=== PATIENT | male | born 1980 | race Caucasian/White ===

== ENCOUNTER 2017-09-19 19:24 | Emergency (ER) | payer MEDICAID ==
[~2017-09-19] VITALS: Ht 170.2 cm; Wt 68.7 kg
[2017-09-19] MEDS ORDERED: TETANUS, DIPHTHERIA, PERTUSSIS VAC/PF 0.5ML (>7YR OLD) IM ONE (23:00)
[2017-09-20] MEDS ORDERED: IBUPROFEN 600MG TABLET PO ONE (01:00)
[2017-09-20 01:11] VITALS: BP 122/86
== END 2017-09-20 01:12 | disposition home or self-care (01) ==
LOC: ER 20:27
DX: S80.02XA Contusion of left knee, initial encounter (principal); F12.10 Cannabis abuse, uncomplicated; F17.200 Nicotine dependence, unspecified, uncomplicated; V29.88XA Motorcycle rider (driver) (passenger) injured in other specified transport accidents, initial encounter; Y93.89 Activity, other specified; Y92.89 Other specified places as the place of occurrence of the external cause; Y99.8 Other external cause status
CPT/HCPCS: 73564; 90471; 90715; 99284; Z7610

== ENCOUNTER 2017-10-17 00:54 | Emergency (ER) | payer MEDICAID ==
[~2017-10-17] VITALS: Ht 170.2 cm; Wt 71.0 kg
[2017-10-17] MEDS ORDERED: ACETAMINOPHEN 325MG TABLET PO ONE (07:00)
[2017-10-17 08:06] VITALS: BP 115/63
== END 2017-10-17 08:35 | disposition home or self-care (01) ==
LOC: ER 00:54
DX: S61.412A Laceration without foreign body of left hand, initial encounter (principal); W25.XXXA Contact with sharp glass, initial encounter; Y93.89 Activity, other specified; Y92.89 Other specified places as the place of occurrence of the external cause
CPT/HCPCS: 99283